=== PATIENT | female | born 1970 | race Caucasian/White ===

== ENCOUNTER → 2024-09-26 | Outpatient (REF) | payer OTHER ==
[2024-09-26 13:29] LABS: BASO # 0.1 10^3/uL (0.0-0.2); BASO % 1.2 % (0.0-1.0); EOS # 0.1 10^3/uL (0.0-0.5); EOS % 1.9 % (0.0-3.0); HEMATOCRIT 44.1 % (36.0-47.0); HEMOGLOBIN 14.2 g/dl (12.0-15.5); LYMPH # 2.2 10^3/uL (1.5-5.0); MEAN CORPUSCULAR HEMOGLOBIN 29.8 pg (27.0-33.0); MEAN CORPUSCULAR HGB CONC 32.2 g/dl (32.0-36.5); MEAN CORPUSCULAR VOLUME 92.5 fl (80.0-96.0); MONO # 0.4 10^3/uL (0.0-0.8); NEUTROPHILS # 4.4 10^3/uL (1.5-8.5); NEUTROPHILS % 60.6 % (36.0-66.0); PLATELET COUNT, AUTOMATED 385 10^3/uL (150-450); RED BLOOD COUNT 4.77 10^6/uL (4.00-5.40); WHITE BLOOD COUNT 7.2 10^3/uL (4.0-10.0)
[2024-09-26 13:48] LABS: IRON (FE) 84 UG/DL (50-170); PERCENT SATURATION 25.1 % (13.2-45.0); TOTAL IRON BINDING CAPACITY 334 UG/DL (250-425)
[2024-09-26 13:49] LABS: ALBUMIN 3.7 G/DL (3.2-5.2); ALKALINE PHOSPHATASE 92 U/L (35-104); ALT/SGPT 22 U/L (7.0-40); AST/SGOT 23 U/L (<34); BILIRUBIN,TOTAL 0.5 MG/DL (0.3-1.2); BLOOD UREA NITROGEN 11 MG/DL (9-23); CALCIUM LEVEL 9.2 MG/DL (8.5-10.1); CARBON DIOXIDE LEVEL 31 MMOL/L (20-31); CHLORIDE LEVEL 103 MMOL/L (98-107); CHOLESTEROL LEVEL 201 MG/DL (<200); CREATININE FOR GFR 0.47 MG/DL (0.55-1.30); GLOMERULAR FILTRATION RATE > 60.0 (>51); GLUCOSE, FASTING 192 MG/DL (60-100); HDL CHOLESTEROL 52.8 MG/DL (>40); LDL CHOLESTEROL 114.2 MG/DL (<100); NON-HDL-C 148.2 MG/DL; POTASSIUM SERUM 4.6 MMOL/L (3.5-5.1); SODIUM LEVEL 142 MMOL/L (136-145); TOTAL PROTEIN 7.3 G/DL (5.7-8.2); TRIGLYCERIDES LEVEL 170 MG/DL (<150)
[2024-09-26 13:50] LABS: FREE T4 1.24 NG/DL (0.89-1.76); VITAMIN B12 LEVEL 422 PG/ML (211-911)
[2024-09-26 13:51] LABS: FERRITIN 56.8 NG/ML (7.3-270.7)
[2024-09-26 13:55] LABS: FOLATE > 24.00 NG/ML (>5.4)
[2024-09-26 14:16] LABS: HEMOGLOBIN A1c 7.1 % (4.0-6.0)
== END ==
LOC: M SFHCCLAY 09:00
PROVIDERS: ATTEND Nurse Practitioner Family
DX: J30.89 Other allergic rhinitis (principal); E11.9 Type 2 diabetes mellitus without complications; Z98.84 Bariatric surgery status